=== PATIENT | female | born 1980 | race Caucasian/White ===

== ENCOUNTER → 2025-01-23 15:16 | Outpatient (REF) | payer BC, SELFPAY | LOC: PAVMRI 15:16 | PROVIDERS: ATTENDING PHYSICIAN Physician Assistant Surgical; FAMILY PHYSICIAN Physician Assistant Medical | DX: G54.0 Brachial plexus disorders (principal) | CPT/HCPCS: 73218 ==

== ENCOUNTER → 2025-10-02 14:29 | Outpatient (REF) | payer BC, SELFPAY | LOC: PAVMRI 14:29 | PROVIDERS: ATTENDING PHYSICIAN Nurse Practitioner Adult Health; FAMILY PHYSICIAN Physician Assistant Medical | DX: R20.0 Anesthesia of skin (principal); R20.2 Paresthesia of skin | CPT/HCPCS: 73221 ==